=== PATIENT | male | born 1990 | race Caucasian/White ===

== ENCOUNTER 2021-03-11 18:58 | Emergency (ER) | payer OTHER, SELFPAY ==
[2021-03-11 19:14] VITALS: BP 132/70; PULSE 79; RESP 16; TEMP 38.3; O2SAT 96; BMI 23.6
--- NOTE | 2021-03-11 19:16 | ED.URI ---
HPI - URI/Sore Throat General Chief Complaint: Nausea/Vomiting/Diarrhea Stated Complaint: thinks covid - shakey, vomiting Time Seen by Provider: 03/11/21 19:11 History of Present Illness HPI Narrative: Patient is a 30-year-old male not vaccinated for COVID history of asthma presenting with fever body aches and 1 episode of vomiting today. Worried that he may have COVID. No one else in his family is sick. Related Data Allergies Allergy/AdvReac Type Severity Reaction Status Date / Time No Known Drug Allergies Allergy Verified 03/11/21 19:17 Review of Systems Review of Systems ROS Unobtainable: All systems reviewed & are unremarkable except as noted in HPI and below Constitutional Constitutional: Reports body ache(s), Reports chills, Reports fatigue and Reports fever(s) ENT Ears, Nose, Mouth, and Throat: Denies vertigo, Denies dizziness and Denies sore throat Cardiovascular Cardiovascular: Denies chest pain and Denies irregular heart rhythm Respiratory Respiratory: Denies chest congestion and Denies cough Gastrointestinal Gastrointestinal: Reports nausea Musculoskeletal Musculoskeletal: Reports myalgias Neurologic Neurologic: Denies vertigo and Denies dizziness Endocrine Endocrine: Reports fatigue Patient History Social History Smoking Status: Former smoker Exam Initial Vital Signs Initial Vital Signs: Vital Signs Temperature 100.9 F H 03/11/21 19:14 Pulse Rate 79 03/11/21 19:14 Respiratory Rate 16 03/11/21 19:14 Blood Pressure 132/70 03/11/21 19:14 Pulse Oximetry 96 03/11/21 19:14 GENERAL: Alert 30-year-old male appears to not feel HEENT: Head atraumatic,EOMI, pupils reactive, face symmetric, moist mucous membranes CARDIOVASCULAR: Regular rate and rhythm without murmurs, rubs or gallops. RESPIRATORY: Breath sounds equal bilaterally, no wheezes rales or rhonchi. ABDOMEN: Soft, nontender. Normoactive bowel sounds all 4 quadrants. No guarding or rebound. EXTREMITIES: Normal range of motion, no clubbing or edema. Neurovascularly intact NEUROLOGICAL: Alert and oriented x4.Normal gait and speech. SKIN: Warm, dry, no laceration, no petechiae, no rashes or lesions. Course Orders Ordered: ED Orders 03/11/21 19:11 COVID19 -Nasal swab/Pre-Proc Stat Discontinued Medications Acetaminophen (Acetaminophen 325 Mg Tablet) 975 mg PO NOW ONE Stop: 03/11/21 19:20 Last Admin: 03/11/21 19:22 Dose: 975 mg Documented by: CHRISTINA Ondansetron HCl (Ondansetron 4 Mg Odt) 4 mg SL NOW ONE Stop: 03/11/21 19:20 Last Admin: 03/11/21 19:22 Dose: 4 mg Documented by: CHRISTINA Vital Signs Vital signs: Vital Signs - 8 hr 03/11/21 19:14 03/11/21 20:00 Temperature 100.9 F H Pulse Rate 79 72 Respiratory Rate 16 16 Blood Pressure 132/70 132/78 Pulse Oximetry 96 97 MDM - URI/Sore Throat Lab Data Labs: Lab Results 03/11/21 Range/Units 19:11 SARS-CoV-2 (PCR) Negative (Negative) MDM Narrative Medical decision making narrative: Patient has probable presumed COVID however to early to test positive. Recommend he get repeat testing Discharge Plan Departure Patient Disposition: Home Clinical Impression: Upper respiratory infection Instructions: DI for COVID-19 (Suspected or Confirmed ) Activity Restrictions/Additional Instructions: * if you have not yet been vaccinated is still recommended and encouraged that you do so once your infection has passed It is presumed that you have COVID. He may need to be retested in about 4-5 days. You can buy home testing kits which are fairly accurate. At home: -Monitor oxygen with pulse oximeter. If less than 90% for more than 1 hour please return to emergency department -I recommend lying on stomach for side rather than back, it has been proven to increase oxygen levels -Wash hands frequently. -Stay isolated at home please follow the isolation instructions below. -Increase fluid intake. -you may take Tylenol as directed if needed for pain or fever Emergency warning signs for COVID-19: - Difficulty breathing or shortness of breath, oxygen less than 90% - Persistent pain or pressure in the chest - New confusion or inability to arouse - Bluish lips or face CDC Guidelines for home isolation: - Stay away from others - Limit contact with pets and animals: If you must care for a pet, wash your hands before and after interacting with them - Wear a mask while in public all places - Cover your mouth and nose with a tissue when you cough or sneeze. Dispose of tissues in a lined trash can and wash your hands immediately with soap and water for at least 20 seconds. If soap and water are not available, clean hands with alcohol-based hand customer equipment engineer that contains at least 60% alcohol. - Clean your hands often with soap and water for at least 20 seconds - Avoid touching your eyes, nose and mouth with unwashed hands - Do not share dishes, drinking glasses, cups, eating utensils, towels, or bedding with other people in your home. After using these items, wash them thoroughly with soap and water or put in the exhaust equipment operator. - Clean high-touch surfaces in your isolation area (?sick room? and bathroom) every day; let a caregiver clean and disinfect high-touch surfaces in other areas of the home. Clean the area or item with soap and water or another detergent if it is dirty. Then, use a household disinfectant.
--- NOTE | 2021-03-11 19:19 | PC.NURSE ---
Pt is concerned about having COVID. Symptoms started at 0300 this AM. Wishing to be tested before going around other people.
[2021-03-11] MEDS: ACETAMINOPHEN 325 MG TABLET 975 MG PO (19:22)
[2021-03-11] MEDS: ONDANSETRON 4 MG ODT SL (19:22)
[2021-03-11 19:33] LABS: COVID19 -Nasal RAPID Negative (Negative)
[2021-03-11 20:00] VITALS: BP 132/78; PULSE 72; RESP 16; O2SAT 97
== END 2021-03-11 20:00 | disposition home or self-care (01) ==
PROVIDERS: Emergency Provider Emergency Medicine
DX: J06.9 Acute upper respiratory infection, unspecified (principal); Z87.891 Personal history of nicotine dependence; Z20.822 Contact with and (suspected) exposure to COVID-19
CPT/HCPCS: 87635; 99283; C9803

== ENCOUNTER 2023-01-27 15:58 | Emergency (ER) | payer OTHER, SELFPAY ==
[2023-01-27 16:02] VITALS: BP 129/83; PULSE 88; RESP 18; TEMP 37.5; O2SAT 98; BMI 24.3
[2023-01-27 17:01] VITALS: BP 127/79; PULSE 84; RESP 16; TEMP 36.9; O2SAT 98
--- NOTE | 2023-01-27 17:05 | DI.CT.S_ITS ---
PROCEDURE: CT SOFT TISSUE NECK W CON INDICATIONS: left ear infection/pain TECHNIQUE: After the administration of intravenous contrast, 3.0 mm axial sections acquired from the sella to the aortic arch. Additional oblique axial 3.0 mm sections acquired through the pharynx. 3 mm thick coronal and sagittal reformats were generated. For radiation dose reduction, the following was used: automated exposure control. COMPARISON: [facility], CT, CT CERVICAL SPINE WITHOUT CONTRAST, 06/07/2021, 18:51. FINDINGS: Image quality: Excellent. Lymph nodes: Level 2 node measuring 1 cm, (2/35), previously 0.8 cm. Vessels: Visualized vasculature appears patent. Neck spaces: Asymmetric soft tissue thickening inferior to the left ear, (2/23). No fluid collection is identified. Left external auditory canal is narrowed compared to the right. Small calcifications in the external auditory canals bilaterally. Increased conspicuity of the left tympanic membrane, (2/13), compared to the right. No convincing mastoiditis. The palatine tonsils are prominent. The oropharynx, nasopharynx, and pharynx demonstrate no mucosal lesions. The vocal cords, false vocal cords, pyriform sinuses, epiglottis, vallecula, and tongue base all appear normal. Extramucosal spaces appear unremarkable. Glands: The parotid and submandibular glands appear normal. Thyroid gland is unremarkable. Miscellaneous: Visualized brain and orbits appear normal. Lung apices appear clear. Superficial soft tissues appear normal. Bones: No suspicious bony lesions. Visualized sinuses and mastoids appear unremarkable. IMPRESSION: 1. Asymmetric thickening of the left external auditory canal and inferior to the left year. Increased conspicuity of the left tympanic membrane. Findings most consistent with otitis externa and likely otitis media. 2. No drainable fluid collection. 3. Prominent left cervical lymph nodes are likely reactive. 4. Prominent palatine tonsils. Dictated by: Nikita Mario M.D. on 01/27/2023 at 17:25 Approved by: Nikita Mario M.D. on 01/27/2023 at 17:37
[2023-01-27] MEDS: ACETAMINOPHEN 325 MG TABLET 975 MG PO (17:17)
[2023-01-27] MEDS: KETOROLAC 30 MG/ML VIAL 15 MG IV (17:17)
--- NOTE | 2023-01-27 17:27 | ED_ITS ---
HPI - Ear Problem <Linette Guadalupe PA-C - Last Filed: 01/27/23 18:21> General Chief complaint: Ear Stated complaint: states swelling in lt ear Time Seen by Provider: 01/27/23 16:14 Source: patient Mode of arrival: Ambulatory History of Present Illness HPI Narrative: Patient is a 32-year-old male who presents with left ear pain since last night. He reports recently having a sinus infection which cleared up with antibiotics about 6 weeks ago. He was feeling well until this pain started last night. He denies any drainage from the ear, he has no congestion, sore throat, cough or runny nose. He does endorse chills last night. Is painful and difficult to open his mouth and very painful to chew. The pain is in front of his ear, behind his ear and radiates down into his neck. These areas also feels somewhat swollen. Related Data Previous Rx's Medication Instructions Recorded amoxicillin 875 mg-potassium 1 tab PO BID #20 tabs 01/27/23 clavulanate 125 mg tablet ofloxacin 0.3 % ear drops 10 drp EAR-LEFT DAILY #5 mL 01/27/23 hydrocodone 5 mg-acetaminophen 325 1 tab PO Q8H PRN pain #10 tabs 01/28/23 mg tablet Allergies Allergy/AdvReac Type Severity Reaction Status Date / Time No Known Drug Allergies Allergy Verified 01/28/23 16:49 Review of Systems <Linette Guadalupe PA-C - Last Filed: 01/27/23 18:21> Review of Systems ROS Unobtainable: All systems reviewed & are unremarkable except as noted in HPI and below Patient History <Linette Guadalupe PA-C - Last Filed: 01/27/23 18:21> Social History Smoking Status: Former smoker Smoking Status: Former smoker alcohol intake frequency: holidays/special occasions only Substance Use Type: does not use Exam <Linette Guadalupe PA-C - Last Filed: 01/27/23 18:21> Narrative Exam Narrative: GENERAL: 32 year old patient appears stated age. Well-developed patient, in mild distress. NEURO: AOx3. HEAD: Atraumatic. Normocephalic. EYES: Pupils equal round and reactive. Extraocular motions intact. No scleral icterus. No injection or drainage. ENT: Nose without bleeding or purulent drainage. Throat with erythema, no tonsillar hypertrophy or exudate. Uvula midline, no swelling under the tongue, no peritonsillar abscess. Airway patent. Left external auditory canal edematous, difficult to visualize full TM because of swelling and pain. There is yellow purulent drainage in the canal. The TM appears pearly scott. He has exquisite tenderness to palpation anterior to the ear, moderate tenderness with palpation of the mastoid and the neck below the ear. No visible edema or erythema to the external ear or surrounding tissues. NECK: Trachea midline. RESPIRATORY: No distress and no increased work of breathing SKIN: No rash or erythema of visible areas Initial Vital Signs Initial Vital Signs: Vital Signs Temperature 99.5 F 01/27/23 16:02 Pulse Rate 88 01/27/23 16:02 Respiratory Rate 18 01/27/23 16:02 Blood Pressure 129/83 01/27/23 16:02 Pulse Oximetry 98 01/27/23 16:02 Oxygen Delivery Method Room Air 01/27/23 16:02 <Cory Agrawal MD - Last Filed: 02/02/23 08:15> Initial Vital Signs Initial Vital Signs: Vital Signs Temperature 99.5 F 01/27/23 16:02 Pulse Rate 88 01/27/23 16:02 Respiratory Rate 18 01/27/23 16:02 Blood Pressure 129/83 01/27/23 16:02 Pulse Oximetry 98 01/27/23 16:02 Oxygen Delivery Method Room Air 01/27/23 16:02 Course <Linette Guadalupe PA-C - Last Filed: 01/27/23 18:21> Orders Ordered: Discontinued Medications Acetaminophen (Acetaminophen 325 Mg Tablet) 975 mg PO NOW ONE Stop: 01/27/23 16:59 Last Admin: 01/27/23 17:17 Dose: 975 mg Documented By: SIMI Amoxicillin/Clavulanate Potassium (Amoxicillin/Clav 875/125 Mg) 1 tab PO NOW ONE Stop: 01/27/23 17:55 Last Admin: 01/27/23 18:01 Dose: 1 tab Documented By: SIMI Ketorolac Tromethamine (Ketorolac 30 Mg/Ml Vial) 15 mg IV NOW ONE Stop: 01/27/23 17:06 Last Admin: 01/27/23 17:17 Dose: 15 mg Documented By: SIMI Vital Signs Vital signs: Vital Signs - 8 hr 01/27/23 16:02 01/27/23 17:01 Temperature 99.5 F 98.4 F Pulse Rate 88 84 Respiratory Rate 18 16 Blood Pressure 129/83 127/79 Pulse Oximetry 98 98 Oxygen Delivery Method Room Air Room Air <Cory Agrawal MD - Last Filed: 02/02/23 08:15> Orders Ordered: Discontinued Medications Acetaminophen (Acetaminophen 325 Mg Tablet) 975 mg PO NOW ONE Stop: 01/27/23 16:59 Last Admin: 01/27/23 17:17 Dose: 975 mg Documented By: SIMI Amoxicillin/Clavulanate Potassium (Amoxicillin/Clav 875/125 Mg) 1 tab PO NOW ONE Stop: 01/27/23 17:55 Last Admin: 01/27/23 18:01 Dose: 1 tab Documented By: SIMI Ketorolac Tromethamine (Ketorolac 30 Mg/Ml Vial) 15 mg IV NOW ONE Stop: 01/27/23 17:06 Last Admin: 01/27/23 17:17 Dose: 15 mg Documented By: SIMI Vital Signs Vital signs: Vital Signs - 8 hr 01/27/23 16:02 01/27/23 17:01 Temperature 99.5 F 98.4 F Pulse Rate 88 84 Respiratory Rate 18 16 Blood Pressure 129/83 127/79 Pulse Oximetry 98 98 Oxygen Delivery Method Room Air Room Air Medical Decision Making <Linette Guadalupe PA-C - Last Filed: 01/27/23 18:21> Lab Data 01/27/23 17:13 01/27/23 17:13 Labs: Lab Results 01/27/23 Range/Units 17:13 WBC 12.2 H (4.5-11.0) X10^3/uL RBC 5.31 (4.5-5.9) X10^6/uL Hgb 15.4 (13.5-17.5) g/dL Hct 44.2 (41-53) % MCV 83.2 (80-100) fL MCH 29.0 (26-34) PG MCHC 34.8 (30-36) % RDW 13.2 (11.6-14.8) % Plt Count 240 (150-400) X10^3/uL Neut % (Auto) 75.9 H (50-75) % Lymph % (Auto) 13.9 L (25-40) % Mchenry % (Auto) 9.2 (3-14) % Eos % (Auto) 0.5 L (2-4) % Baso % (Auto) 0.5 (0-2) % Neut # (Auto) 9300 H (1223-5673) /uL Lymph # (Auto) 1700 (1951-1583) /uL Mchenry # (Auto) 1100 H (0-900) /uL Eos # (Auto) 100 (0-450) /uL Baso # (Auto) 100 (0-100) /uL Sodium 137 (137-145) mmol/L Potassium 3.9 (3.4-5.1) mmol/L Chloride 97 L (98-107) mmol/L Carbon Dioxide 28 (22-32) mmol/L BUN 15 (9-20) mg/dL Creatinine 0.82 (0.66-1.25) mg/dL Estimated GFR > 60 (>60) mL/min BUN/Creatinine Ratio 18.3 (6-22) Glucose 88 (70-100) mg/dL Calcium 10.0 (8.4-10.2) mg/dL Imaging Data ct soft tissue neck: Radiologist's Impression: PROCEDURE: CT SOFT TISSUE NECK W CON INDICATIONS: left ear infection/pain TECHNIQUE: After the administration of intravenous contrast, 3.0 mm axial sections acquired from the sella to the aortic arch. Additional oblique axial 3.0 mm sections acquired through the pharynx. 3 mm thick coronal and sagittal reformats were generated. For radiation dose reduction, the following was used: automated exposure control. COMPARISON: [facility], CT, CT CERVICAL SPINE WITHOUT CONTRAST, 06/07/2021, 18:51. FINDINGS: Image quality: Excellent. Lymph nodes: Level 2 node measuring 1 cm, (2/35), previously 0.8 cm. Vessels: Visualized vasculature appears patent. Neck spaces: Asymmetric soft tissue thickening inferior to the left ear, (2/23). No fluid collection is identified. Left external auditory canal is narrowed compared to the right. Small calcifications in the external auditory canals bilaterally. Increased conspicuity of the left tympanic membrane, (2/13), compared to the right. No convincing mastoiditis. The palatine tonsils are prominent. The oropharynx, nasopharynx, and pharynx demonstrate no mucosal lesions. The vocal cords, false vocal cords, pyriform sinuses, epiglottis, vallecula, and tongue base all appear normal. Extramucosal spaces appear unremarkable. Glands: The parotid and submandibular glands appear normal. Thyroid gland is unremarkable. Miscellaneous: Visualized brain and orbits appear normal. Lung apices appear clear. Superficial soft tissues appear normal. Bones: No suspicious bony lesions. Visualized sinuses and mastoids appear unremarkable. IMPRESSION: 1. Asymmetric thickening of the left external auditory canal and inferior to the left year. Increased conspicuity of the left tympanic membrane. Findings most consistent with otitis externa and likely otitis media. 2. No drainable fluid collection. 3. Prominent left cervical lymph nodes are likely reactive. 4. Prominent palatine tonsils. Dictated by: Nikita Mario M.D. on 01/27/2023 at 17:25 Approved by: Nikita Mario M.D. on 01/27/2023 at 17:37 [facility] Narrative Medical decision making narrative: Multiple etiologies for patient's symptoms considered including, but not limited to: Otitis externa, malignant otitis externa, mastoiditis, dental infection, neck deep space infection. Physical exam is generally consistent with otitis externa but pain is out of proportion, his tenderness extends inferiorly from the ear and patient has significant trismus. He has low-grade fever here in the emergency room. Discussed with Dr. Agrawal who agrees that CT scan to evaluate for further infection is indicated. We will also obtain labs to assess for leukocytosis. CT consistent with otitis media and otitis externa, no deeper infection noted. Leukocytosis of 12k noted. Discussed results with patient. We will prescribe a week-long course of Augmentin plus ofloxacin drops. Advised patient that if he has a 3rd sinus or ear infection in the next several months, I would consider going to ENT for further evaluation. We will send a culture of the ear drainage today. Patient's symptoms improved over duration of stay with above-stated therapies. Findings and discharge diagnosis discussed with patient/family followed by verbalization of understanding Return precautions discussed with patient/family whom verbalize understanding of diagnosis and plan <Cory Agrawal MD - Last Filed: 02/02/23 08:15> Lab Data Labs: Lab Results 01/27/23 Range/Units 17:13 WBC 12.2 H (4.5-11.0) X10^3/uL RBC 5.31 (4.5-5.9) X10^6/uL Hgb 15.4 (13.5-17.5) g/dL Hct 44.2 (41-53) % MCV 83.2 (80-100) fL MCH 29.0 (26-34) PG MCHC 34.8 (30-36) % RDW 13.2 (11.6-14.8) % Plt Count 240 (150-400) X10^3/uL Neut % (Auto) 75.9 H (50-75) % Lymph % (Auto) 13.9 L (25-40) % Mchenry % (Auto) 9.2 (3-14) % Eos % (Auto) 0.5 L (2-4) % Baso % (Auto) 0.5 (0-2) % Neut # (Auto) 9300 H (2117-4989) /uL Lymph # (Auto) 1700 (7675-7668) /uL Mchenry # (Auto) 1100 H (0-900) /uL Eos # (Auto) 100 (0-450) /uL Baso # (Auto) 100 (0-100) /uL Sodium 137 (137-145) mmol/L Potassium 3.9 (3.4-5.1) mmol/L Chloride 97 L (98-107) mmol/L Carbon Dioxide 28 (22-32) mmol/L BUN 15 (9-20) mg/dL Creatinine 0.82 (0.66-1.25) mg/dL Estimated GFR > 60 (>60) mL/min BUN/Creatinine Ratio 18.3 (6-22) Glucose 88 (70-100) mg/dL Calcium 10.0 (8.4-10.2) mg/dL Discharge Plan Departure Patient Disposition: Home Clinical Impression: Otitis externa Otitis media Qualifiers: Otitis media type: unspecified Chronicity: acute Qualified Code(s): H66.90 - Otitis media, unspecified, unspecified ear Instructions: How to Instill Ear Drops, DI for Otitis Externa Prescriptions: New amoxicillin-pot clavulanate 875-125 mg tablet 1 tab PO BID Qty: 20 0RF ofloxacin 0.3 % drops 10 drp EAR-LEFT DAILY Qty: 5 0RF Rx Instructions: for 7-10 days No Action hydrocodone-acetaminophen 5-325 mg tablet 1 tab PO Q8H PRN (Reason: pain) Qty: 10 0RF Stand Alone Forms: Patient Portal/API ED Sign-out <Cory Agrawal MD - Last Filed: 02/02/23 08:15> Cosign ED Attending Cosignature Attestation: I was immediately available in the department for consultation. ?This documentation has been reviewed and I agree with assessment and plan. Supervised by Cory Agrawal MD
[2023-01-27 17:34] LABS: Add Manual Diff / Slide Review NO; Basophils Absolute Auto 100 /uL (0-100); Basophils Percent Auto 0.5 % (0-2); Eosinophils Absolute Auto 100 /uL (0-450); Eosinophils Percent Auto 0.5 % (2-4); Hematocrit 44.2 % (41-53); Hemoglobin 15.4 g/dL (13.5-17.5); Lymphocytes Absolute Auto 1700 /uL (1100-4500); Lymphocytes Percent Auto 13.9 % (25-40); Mean Corpuscular HGB Conc 34.8 % (30-36); Mean Corpuscular Volume 83.2 fL (80-100); Monocytes Absolute Auto 1100 /uL (0-900); Monocytes Percent Auto 9.2 % (3-14); Neutrophils Absolute Auto 9300 /uL (1500-7000); Neutrophils Percent Auto 75.9 % (50-75); Platelet Count 240 X10^3/uL (150-400); Red Blood Cell Count 5.31 X10^6/uL (4.5-5.9); Red Cell Distribution Width 13.2 % (11.6-14.8); White Blood Cell Count 12.2 X10^3/uL (4.5-11.0)
[2023-01-27 17:36] LABS: BUN Creatinine Ratio 18.3 (6-22); Blood Urea Nitrogen 15 mg/dL (9-20); Carbon Dioxide 28 mmol/L (22-32); Chloride 97 mmol/L (98-107); Estimated Glomerular Filt Rate > 60 mL/min (>60); Glucose 88 mg/dL (70-100); HEMOLYSIS < 15 (0-50); Potassium 3.9 mmol/L (3.4-5.1); Sodium 137 mmol/L (137-145)
[2023-01-27] MEDS: AMOXICILLIN/CLAV 875/125 MG 1 TAB PO (18:01)
== END 2023-01-27 18:08 | disposition home or self-care (01) ==
PROVIDERS: Emergency Provider Physician Assistant
DX: H60.392 Other infective otitis externa, left ear (principal); H66.92 Otitis media, unspecified, left ear
CPT/HCPCS: 36415; 70491; 80048; 85025; 87070; 87077; 87186; 87205; 96374; 99284; J1885; Q9967

== ENCOUNTER 2023-01-28 16:43 | Emergency (ER) | payer OTHER, SELFPAY ==
[2023-01-28 16:46] VITALS: BP 130/70; PULSE 88; RESP 16; TEMP 37.8; O2SAT 98; BMI 24.3
[2023-01-28 17:06] VITALS: BP 138/80; PULSE 88; RESP 18; O2SAT 97
--- NOTE | 2023-01-28 17:06 | ED.GENADULT ---
HPI - General Adult General Chief complaint: Ear Stated complaint: Ear, jaw and chest pain Time Seen by Provider: 01/28/23 16:54 Source: patient and EMS Mode of arrival: EMS Limitations: no limitations History of Present Illness HPI narrative: 32-year-old male. Was seen here in the emergency department yesterday. Was diagnosed with otitis externa and otitis media. Was placed on oral antibiotics and also antibiotic drops. States that he feels like the left side of his face is swollen. Has quite a bit of discomfort in his left ear and was also having some chest discomfort. No fevers. No problems swallowing. He is discomfort with any sort of palpation or movement of the left ear. He has been doing the antibiotics as directed. Related Data Previous Rx's Medication Instructions Recorded amoxicillin 875 mg-potassium 1 tab PO BID #20 tabs 01/27/23 clavulanate 125 mg tablet ofloxacin 0.3 % ear drops 10 drp EAR-LEFT DAILY #5 mL 01/27/23 hydrocodone 5 mg-acetaminophen 325 1 tab PO Q8H PRN pain #10 tabs 01/28/23 mg tablet Allergies Allergy/AdvReac Type Severity Reaction Status Date / Time No Known Drug Allergies Allergy Verified 01/28/23 16:49 Review of Systems ENT Ears, Nose, Mouth, and Throat: Reports system reviewed and no additional complaints, except as documented Cardiovascular Cardiovascular: Reports system reviewed and no additional complaints, except as documented Integumentary/Breasts Skin/Breast: Reports system reviewed and no additional complaints, except as documented Neurologic Neurologic: Reports system reviewed and no additional complaints, except as documented Patient History Social History Smoking Status: Former smoker Smoking Status: Former smoker alcohol intake frequency: holidays/special occasions only Substance Use Type: does not use Exam Initial Vital Signs Initial Vital Signs: Vital Signs Temperature 100.1 F H 01/28/23 16:46 Pulse Rate 88 01/28/23 16:46 Respiratory Rate 16 01/28/23 16:46 Blood Pressure 130/70 01/28/23 16:46 Pulse Oximetry 98 01/28/23 16:46 Oxygen Delivery Method Room Air 01/28/23 16:46 Const General: cooperative HENMT Ears: other (Left otitis externa swollen. TM not visualized) Neck Other: Left-sided anterior cervical and submandibular lymphadenopathy that is tender to palpation Resp Effort & Inspection: normal respiratory effort Auscultation: clear to auscultation bilaterally Cardio Rate: regular rate Skin General: no rashes or lesions noted Lesions: no lesions Neuro General: patient alert, patient awake and moves all extremities Extrem General: capillary refill normal Course Orders Ordered: ED Orders 01/28/23 17:02 EKG-12 Lead Stat Hydrocodone Bitart/Acetaminophen (Hydrocodone/Acet 5/325 Tablet) 1 tab PO NOW ONE Stop: 01/28/23 18:00 Discontinued Medications Ketorolac Tromethamine (Ketorolac 30 Mg/Ml Vial) 30 mg IV NOW ONE Stop: 01/28/23 17:07 Last Admin: 01/28/23 17:10 Dose: 30 mg Documented By: FABIAN Vital Signs Vital signs: Vital Signs - 8 hr 01/28/23 16:46 01/28/23 17:06 Temperature 100.1 F H Pulse Rate 88 88 Respiratory Rate 16 18 Blood Pressure 130/70 138/80 Pulse Oximetry 98 97 Oxygen Delivery Method Room Air Medical Decision Making ECG Data Attestation: I personally reviewed and interpreted this ECG as follows: Interpretation: Sinus rhythm Ventricular rate 82 Normal axis Normal QRS No ST T wave changes MDM Narrative Medical decision making narrative: Ear wick was placed in the left ear secondary to the swelling. I suspect that this will help with the antibiotic drops. There was no indication to change any of his antibiotics. He does have quite a bit of left sided lymphadenopathy. There was no signs of any abscess in this area. Will discharge patient home with pain control and instructions to continue to take his antibiotics. He was given return precautions. His EKGs unremarkable. Low suspicion for ACS or pneumonia. Discharge Plan Departure Patient Disposition: Home Clinical Impression: Otitis externa Activity Restrictions/Additional Instructions: I do recommend that you continue to use all of the antibiotics as directed. The ear wick that was placed in the left ear should come out on its own once the swelling has improved. You can take Tylenol/ibuprofen for discomfort. Return to the emergency department for new or worsening symptoms. Prescriptions: New hydrocodone-acetaminophen 5-325 mg tablet 1 tab PO Q8H PRN (Reason: pain) Qty: 10 0RF No Action amoxicillin-pot clavulanate 875-125 mg tablet 1 tab PO BID Qty: 20 0RF ofloxacin 0.3 % drops 10 drp EAR-LEFT DAILY Qty: 5 0RF Rx Instructions: for 7-10 days Stand Alone Forms: Patient Portal/API
[2023-01-28] MEDS: KETOROLAC 30 MG/ML VIAL IV (17:10)
[2023-01-28] MEDS: HYDROCODONE/ACET 5/325 TABLET 1 TAB PO (18:19)
[2023-01-28 18:20] VITALS: BP 130/70; PULSE 80; RESP 18; O2SAT 98
== END 2023-01-28 18:21 | disposition home or self-care (01) ==
PROVIDERS: Emergency Provider Emergency Medicine
DX: H60.92 Unspecified otitis externa, left ear (principal); R07.9 Chest pain, unspecified
CPT/HCPCS: 93005; 93010; 96374; 99284; J1885

== ENCOUNTER → 2023-12-02 12:37 | Outpatient (CLI) | payer OTHER, SELFPAY ==
--- NOTE | 2023-12-02 12:39 | DI.RAD.S_ITS ---
PROCEDURE: FL SHOULDER INJECTION MR/CT RT INDICATIONS: PAIN IN RIGHT SHOULDER COMPARISON: [facility], MR, MR SHOULDER RT W CON, 12/02/2023, 13:26. TECHNIQUE: The indications, alternatives, benefits, risks, and complications of the procedure were explained to the patient. Written informed consent was obtained and placed in the chart. The shoulder was examined fluoroscopically and a site for needle placement chosen for entry into the glenohumeral joint from an anterior approach. The skin was prepped and draped in a sterile fashion, and 1% lidocaine infiltrated from skin down to joint capsule. A spinal needle was inserted into the glenohumeral joint, and a small amount of iodinated contrast media injected to confirm intra-articular placement of the needle tip. This was followed by approximately 12 mL dilute solution of a gadolinium containing MR contrast agent. The needle was removed and a dressing was applied. The patient was given postprocedural instructions and sent to the MR suite for MR imaging. FINDINGS: A single fluoroscopic spot image demonstrates intra-articular location of injected iodinated contrast. IMPRESSION: Successful fluoroscopically guided administration of dilute Gadolinium solution into the shoulder joint for MR arthrogram. Dictated by: Nikita Mario M.D. on 12/02/2023 at 15:20 Approved by: Nikita Mario M.D. on 12/02/2023 at 15:20
--- NOTE | 2023-12-02 12:40 | DI.MRI.S_ITS ---
PROCEDURE: MR SHOULDER RT W CON INDICATIONS: PAIN IN RIGHT SHOULDER TECHNIQUE: After the administration of 12 mL of dilute intra-articular Gadolinium contrast, oblique coronal T1 and T2 spin echo with fat saturation, oblique sagittal T1 spin echo with and without fat saturation, oblique sagittal T2 fast spin echo with fat saturation, axial T1 spin echo with fat saturation through the shoulder. COMPARISON: None. FINDINGS: Image quality: Excellent. Rotator cuff: Minimal tendinosis of the supraspinatus and infraspinatus, without tear. The teres minor is unremarkable. The subscapularis is unremarkable. No muscle edema or fatty atrophy. Bones and bursae: No significant degenerative changes acromioclavicular joint. Type 2 acromion. No os acromiale. Mild subacromial/subdeltoid bursitis. Mild subchondral cystic changes in the posterior greater tuberosity, reactive. No acute fracture. No focal chondral defect of the glenohumeral articulation. Capsule and soft tissues: Superior labral tear, extending anteriorly to the anterior superior labrum. There is tear of the superior posterior labral, extending to the posterior labrum. No paralabral cyst. The extra-articular and the intra-articular biceps tendon are unremarkable. Large amount intra-articular contrast distends the glenohumeral joint and the subcoracoid bursa. IMPRESSION: 1. Minimal tendinosis of the supraspinatus and infraspinatus, without tear. 2. Labral tear. 3. Mild subacromial/subdeltoid bursitis. Dictated by: Melany Abreu M.D. on 12/02/2023 at 17:38 Approved by: Melany Abreu M.D. on 12/02/2023 at 17:44
[2023-12-02] MEDS: LIDOCAINE 1% 20 ML INJ (13:23)
[2023-12-02] MEDS: SODIUM CHLORIDE 0.9 % 20 ML VIAL IV (13:24)
== END ==
LOC: RAD 12:38
PROVIDERS: PCP Nurse Practitioner Family; Referring Provider Nurse Practitioner Family; Visit Provider Nurse Practitioner Family
DX: S43.431A Superior glenoid labrum lesion of right shoulder, initial encounter (principal); M75.51 Bursitis of right shoulder; M25.511 Pain in right shoulder
CPT/HCPCS: 23350; 73040; 73222; A9579; Q9967